=== PATIENT | female | born 1930 | race Caucasian/White ===

== ENCOUNTER → 2022-02-22 | Outpatient (CLI) | payer MEDICARE ==
[~2022-02-22] MED LIST: ASPIRIN EC81 MG PO; CIPRO500 MG PO; DEXAMETHASONE6 MG PO; DITROPAN XL10 MG PO; LIPITOR40 MG PO; LOPRESSOR 25 MG25 MG PO; MULTIVITAMIN1 EACH PO; NITROSTAT0.4 MG SL; VITAMIN B-1100 MG PO
== END ==
LOC: LAB 11:26
DX: Z20.822 Contact with and (suspected) exposure to COVID-19 (principal)
CPT/HCPCS: U0002

== ENCOUNTER → 2022-02-24 | Outpatient (CLI) | payer MEDICARE | LOC: MRI 02-21 09:30 → CATH 09:37 → MRI 13:00 | DX: I95.1 Orthostatic hypotension (principal) | CPT/HCPCS: 70551 ==

== ENCOUNTER → 2022-02-24 | Outpatient (CLI) | payer MEDICARE | LOC: HEART 5 11:40 | DX: G40.909 Epilepsy, unspecified, not intractable, without status epilepticus (principal); R55 Syncope and collapse ==